=== PATIENT | female | born 1965 | race Caucasian/White ===

== ENCOUNTER 2024-11-17 16:02 | Emergency (ER) | payer OTHER ==
[~2024-11-17] VITALS: Ht 162.6 cm; Wt 60.0 kg
[2024-11-17 16:04] VITALS: O2SAT 96
[2024-11-17 17:14] LABS: BASOPHILS % 1.3 % (0.0-2.0); EOSINOPHILS % 1.5 % (0.0-5.0); HEMATOCRIT. 41.9 % (36.0-48.0); HEMOGLOBIN. 14.1 g/dL (12.0-16.0); LYMPHOCYTES % 19.1 % (20.0-50.0); MEAN PLATELET VOLUME 7.2 fl (7.4-10.4); MONOCYTES % 8.3 % (2.0-8.0); NEUTROPHILS % 69.8 % (40.0-76.0); PLATELET 316 x1000/uL (130-400); RED BLOOD CELL COUNT 4.72 mill/uL (4.2-5.4); RED CELL DISTRIBUTION WIDTH 12.8 % (11.6-14.6)
[2024-11-17 17:25] LABS: CREATININE 0.7 mg/dL (0.6-1.0); UREA NITROGEN BLOOD 11 mg/dL (9-23)
[2024-11-17 17:26] LABS: ETHANOL BLOOD < 10 mg/dL (<10)
[2024-11-18] MEDS: AMLODIPINE 5MG TABLET PO ONE (10:03)
[2024-11-18] MEDS ORDERED: HYDROXYZINE 25MG TABLET PO PRN (11:00)
[2024-11-18 11:21] LABS: CLARITY URINE CLEAR (CLEAR); COLOR URINE YELLOW (YELLOW); GLUCOSE URINE NEGATIVE (NEGATIVE); KETONES URINE 1+ (NEGATIVE); LEUKOCYTE ESTERASE URINE 1+ (NEGATIVE); NITRITE URINE NEGATIVE (NEGATIVE); OCCULT BLOOD URINE NEGATIVE (NEGATIVE); PH URINE 6.5 (4.5-8.0); PROTEIN URINE NEGATIVE (NEGATIVE); SPECIFIC GRAVITY URINE 1.010 (1.005-1.030); UROBILINOGEN URINE 0.2 E.U./dL (0.2-1.0)
[2024-11-18 11:41] LABS: *AMPHETAMINES SCREEN URINE NEGATIVE (NEGATIVE); *BARBITURATES SCREEN URINE NEGATIVE (NEGATIVE); *BENZODIAZEPINES SCREEN URINE NEGATIVE (NEGATIVE); *COCAINE SCREEN URINE NEGATIVE (NEGATIVE); METHADONE URINE SCREEN NEGATIVE (NEGATIVE); OPIATES URINE SCREEN NEGATIVE (NEGATIVE)
[2024-11-18 11:42] LABS: CANNABINOID URINE SCREEN NEGATIVE (NEGATIVE); ECSTASY MDMA SCREEN URINE NEGATIVE (NEGATIVE); PHENCYCLIDINE URINE SCREEN NEGATIVE (NEGATIVE)
[2024-11-18 11:45] LABS: MUCUS URINE 1+ /lpf (< = 2+); SQUAMOUS EPITHELIAL CELL URINE 1+ /lpf (RARE/1+)
[2024-11-18 11:46] LABS: RBC URINE 0-2 /hpf (0-2); WBC URINE 0-2 /hpf (0-2)
[2024-11-18 11:47] LABS: BACTERIA URINE NONE SEEN
[2024-11-18] MEDS ORDERED: TRAZODONE HCL 50MG TABLET PO PRN (21:00)
[2024-11-19] MEDS: AMLODIPINE 5MG TABLET PO SCH (10:11)
[2024-11-19] MEDS: IBUPROFEN 600MG TABLET PO SCH (19:09)
[2024-11-20 13:58] VITALS: BP 111/60; PULSE 96; RESP 16; TEMP 36.7; O2SAT 96
== END 2024-11-20 14:35 | disposition home or self-care (01) ==
LOC: ER 16:02
DX: R41.82 Altered mental status, unspecified (principal); R53.1 Weakness; R42 Dizziness and giddiness; F29 Unspecified psychosis not due to a substance or known physiological condition; Z00.8 Encounter for other general examination; Z85.3 Personal history of malignant neoplasm of breast; Z79.899 Other long term (current) drug therapy; Z20.822 Contact with and (suspected) exposure to COVID-19
CPT/HCPCS: 36415; 71045; 80048; 80305; 80307; 80320; 80329; 81003; 82962; 85025; 87426; 93005; 99285; G0480